=== PATIENT | female | born 2000 | race Caucasian/White ===

== ENCOUNTER 2024-01-23 13:49 | Outpatient (CLI) | payer BC, SELFPAY ==
--- NOTE | ~2024-01-23 | US_ITS ---
EXAMINATION: US OB transvaginal DATE: 01/23/2024 14:14 INDICATION: Uncertain dates. . TECHNIQUE: Real-time transvaginal pelvic ultrasound was performed. COMPARISON: None. FINDINGS: The uterus measures 10.1 x 5.4 x 6.2 cm. There is an intrauterine gestational sac. A yolk sac is iden tified. The crown rump length measures 1.5 cm, which correlates with an estimated gestational age of 7 weeks and 6 day(s) (+/-) 5 day(s). heart motion is identified measuring 155 beats per minute (bpm) by M-mode Doppler. The right ovary measures 5.3 x 3.0 x 3.1 cm. The left ovary is not vi sualized. There is no free fluid in the pelvis. IMPRESSION: 1. Single living intrauterine gestation with estimated date of delivery of 09/04/2024. Reviewed, dictated and finalized at location A. IMPRESSION: 1. Single living intrauterine gestation with estimated date of delivery of 08/12.
== END 2024-01-23 13:50 | disposition home or self-care (01) ==
PROVIDERS: PCP Physician Assistant; Visit Provider Nurse Practitioner Women's Health
DX: Z36.87 Encounter for antenatal screening for uncertain dates (principal); Z3A.00 Weeks of gestation of pregnancy not specified
CPT/HCPCS: 76817

== ENCOUNTER 2024-04-11 08:35 | Outpatient (CLI) | payer BC, SELFPAY ==
--- NOTE | ~2024-04-11 | US_ITS ---
EXAMINATION: US OB /maternal detail DATE: 04/11/2024 10:00 INDICATION: anatomic survey. TECHNIQUE: Real-time ultrasound of the pelvis was performed. COMPARISON: Ultrasound 01/23/2024 FINDINGS: There is a single living fetus in vertex presentation. The placenta is anterior, 6.7 cm from the cer vix. The cervical length is 3.5 cm on transabdominal images, which is normal. heart rate is 158 beats per minute (bpm). The amniotic fluid volume is subjectively normal. The following biometric data were obtained: Biparietal diameter (BPD): 4.3 cm; head circumference (HC): 15.9 cm; abdominal circumference (AC): 13 .7 cm; femur length (FL): 2.8 cm. These measurements are concordant. Estimated weight is 263 g +/- 40 g, which correlates with the 32nd percentile when 09/04/24 is u sed as estimated date of delivery. As single measurements, these parameters are each equal to the following estimated gestational ages: BPD: 19 weeks 1 days. HC: 18 weeks 5 days. AC: 19 weeks 1 days. FL: 18 weeks 4 days. estimated gestational age based solely on measurements from this exam is 18 weeks 6 days +/- 1 weeks 2 days. The cerebral ventricles, cerebellum, cisterna magna, nuchal fold, and spine are normal. The heart is normal. The diaphragm, stomach, kidneys, and bladder are normal. There are two umbilical arteries to yield a 3-vessel cord. The cord insertion is normal. IMPRESSION: 1. Single living fetus in vertex presentation. 2. Estimated weight is 263 g +/- 40 g, which correlates with the 32nd percentile when 09/04/24 is used as estimated date of delivery. This date was set by ultrasound on 01/23/2024. 3. Normal anatomic survey. Reviewed, dictated and finalized at location A. TRICIAN THIRD IMPRESSION: 1. Single living fetus in vertex presentation. 2. Estimated weight is 263 g +/- 40 g, which correlates with the 32nd pe rcentile when 09/04/24 is used as estimated date of delivery. This date was set by ultrasound on 01/23/2024. 3. Normal anatomic survey.
== END 2024-04-11 08:36 | disposition home or self-care (01) ==
PROVIDERS: PCP Physician Assistant; Visit Provider Obstetrics & Gynecology Gynecology
DX: Z36.9 Encounter for antenatal screening, unspecified (principal); Z3A.18 18 weeks gestation of pregnancy
CPT/HCPCS: 76805

== ENCOUNTER 2024-08-26 15:50 | Inpatient (IN) | payer BC, SELFPAY ==
[2024-08-26] VITALS (87 sets, daily range): BP systolic 84–147; BP diastolic 48–116; PULSE 27–171; TEMP 36–36.4; O2SAT 71–100; BMI 45.3
--- NOTE | 2024-08-26 16:42 | P.PNAN_ITS ---
Anes - Eval Pre Procedure Procedure: labor epidural Date/Time: 08/26/24 16:42 Surgeon: aime Preop Diagnosis: pain during labor Pre Op Diagnosis: IOL Patient Data Age: 24 Gender: F Height: Weight: Allergies Allergy/AdvReac Type Severity Reaction Status Date / Time No Known Allergies Allergy Verified 08/05/24 12:47 Home Medications ?Medication ?Instructions ?Recorded ?Confirmed ?Type PNV cmb#[id number]-ferrous fumarate-FA PO 08/05/24 History bupropion HCl 150 mg 24 hr tablet, 150 mg PO DAILY 08/05/24 08/05/24 History extended release (Wellbutrin XL) escitalopram oxalate 20 mg tablet 20 mg PO DAILY 08/05/24 08/05/24 History Patient hx anesthesia problems: none Family hx anesthesia problems: none Results Review: All pre-operative results and documents have been reviewed as part of the pre- operative evaluation. PMFSH Past Medical History Medical History (Updated 08/26/24 @ 16:43 by Jessica Rushing CRNA) Depression Anxiety IUP (intrauterine ), incidental Family History Family History (Updated 08/05/24 @ 12:38 by Susana Desai RN) Mother Cerebrovascular accident Grandparent T-cell lymphoma Grandparent Heart attack Social History Social History Substance use: never Spiritual care concerns: No Exam Day of Procedure 08/26/24 16:42
[2024-08-26 16:45] LABS: Basophils Percent Auto 0.2 % (0.2-1.2); Eosinophils Absolute Auto 0.1 K/mm3 (0-0.3); Hematocrit 33.7 % (37.0-47.0); Hemoglobin 10.6 g/dL (12.0-15.0); Immature Granulocyte Absolute 0.08 K/mm3 (0.00-0.031); Immature Granulocyte Percent A 0.6 % (0-0.5); Lymphocytes Absolute Auto 2.36 K/mm3 (0.9-3.2); Lymphocytes Percent Auto 16.3 % (18.3-44.2); Mean Corpuscular HGB Conc 31.5 g/dl (32-36); Mean Corpuscular Hemoglobin 26.8 pg (26-34); Mean Corpuscular Volume 85.3 fl (80-100); Mean Platelet Volume 10.5 fl (7.4-10.4); Monocytes Absolute Auto 0.8 K/mm3 (0.1-0.6); Monocytes Percent Auto 5.4 % (2.6-8.5); Neutrophils Absolute Auto 11.1 K/mm3 (1.3-6.7); Neutrophils Percent Auto 76.5 % (45.5-73.1); Platelet Count Result 355 k/mm3 (150-375); Red Blood Count 3.95 M/mm3 (4.2-5.4); White Blood Count 14.5 K/mm3 (4.5-10.0)
--- OUTSIDE RECORDS SUMMARY | 2024-08-26 16:48 | XMS_ITS | Clinical Summary ---
Author Organization [facility] Address [address] [place] [id number] Care Team Providers Care Profiling Machine Setup Operator Name Role Phone Farzana Griffin PA-C Primary Care Provider [phone] Allergies No known active allergies Medications vitamin D2, ergocalciferol , (DRISDOL) 1.25 mg capsule TAKE 1 CAPSULE BY MOUTH TWICE WEEKLY WITH A MEAL DIRECTED 5 Active vitamin, low iron, 27-0.8 mg tablet Take 1 tablet by mouth daily. Active methylPREDNISo FARNAZ tapia, (MEDROL DOSEPAK) 4 MG tablet MEDROL dose pack as directed 1 each 5 Active buPROPion XL (WELLBUTRIN XL) 150 MG 24 hr tablet Take 1 tablet (150 mg total) by mouth daily. 025 Discontinued amoxicillin (AMOXIL) 500 MG tablet Take 1 tablet (500 mg total) by mouth 2 (two) times daily for 10 days. 20 tablet 5 025 Encounters Date Type Department Care Team Description 07/30/2024 4:22 PM CDT - 07/30/2024 5:15 PM CDT Hospital Encounter [facility] [address] [place] [id number] Hanna Mccord NP Congestion Discharge Disposition: Home or Self Care (Routine Discharge) 07/30/2024 Travel from Last 3 Months Social History Tobacco Use Types Packs/Day Years Used Date Smoking Tobacco: Never Smokeless Tobacco: Never Tobacco Cessation:Counseling Given: No Alcohol Use Standard Drinks/Week Comments No 0 (1 standard drink = 0.6 oz pur e alcohol) Estimated Date of Delivery Comme nts Yes 09/02/2024 Sex and Gender Information Value Date Recorded Sex Assigned at Female 07/30/2024 4:22 PM CDT Legal Sex Female 7:58 PM CDT Gender Identity Not on file Sexual Orientation Not on file Last Filed Vital Signs Vital Sign Reading Time Taken Comments Blood Pressure 137/85 07/30/2024 4:31 PM CDT Pulse 110 07/30/2024 4:31 PM CDT Temperature 37.1 C (98.8 F) 07/30/2024 4:31 PM CDT Respiratory Rate 22 07/30/2024 4:31 PM CDT Oxygen Saturation 98% 07/30/2024 4:33 PM CDT Inhaled Oxygen Concentration - - Weight 113.4 kg (250 lb) 07/30/2024 4:31 PM CDT Height 162.6 cm (5' 4 ) 07/30/2024 4:31 PM CDT Body Mass Index 42.91 07/30/2024 4:31 PM CDT Plan of Treatment Health Maintenance Due Date Last Done Comments Cervical Cancer Screening Pap Smear (Age 21 to 29) Every 3 Years 1999 Cervical Cancer Screening 1999 Annual Physical 07/20/2002 DTaP, Tdap and Td Vaccines (6 - Tdap) 07/20/2010 09/04/2004, 02/18/2001, 03/01/2000, Additional history exists HPV Vaccines (1 - 3-dose series) 07/20/2014 Hepatitis C 07/20/2017 COVID-19 Vaccine ( season) 2024 12/15/2020, 11/24/2020 Hepatitis B Vaccines Completed 06/25/2000, 1999, 1999 Pneumococcal Vaccine: Pediatrics (0 to 5 Years) and At-Risk Patients (6 to 49 Years) Aged Out 10/24/2000, 06/25/2000 No longer eligibl e based on patient's age to complete this topic Meningococcal Vaccine Completed 01/25/2017 Meningococcal B Vaccine Aged Out No l onger eligible based on patient's age to complete this topic RSV Immunization or 60+ Years (No Doses Required) Completed RSV Immunizations Under 20 Months Aged Out No longer eligible based on patient's age to complete this topic Procedures Procedure Name Priority Date/Time Associated Diagnosis Comments STREP A RAPID STAT 07/30/2024 4:53 PM CDT from Last 3 Months Results * STREP A RAPID (07/30/2024 4:53 PM CDT) SPECIMEN TYPE THROAT 07/30/2024 4:53 PM CDT [facility] RAPID STREP TEST NEGATIVE NEGATIVE 07/30/2024 5:06 PM CDT [facility] STRUCTURE OF ANTERIOR PORTION OF NECK / Unknown 07/30/2024 4:53 PM CDT us Hanna Mccord NP MICROBIOLOGY - GENERAL ORDERA BLES Final Result Performing Organization Address City/State/[facility] Co de Phone Number [facility] [place] [address], from Last 3 Months Insurance [facility] Care Teams Profiling Machine Setup Operator Relationship Specialty Start Date End Date Farzana Griffin PA-C [address] [place] [address] PCP - General PHYSICIAN LIFE INSURANCE SALESPERSON 07/30/24
--- OUTSIDE RECORDS SUMMARY | 2024-08-26 16:48 | XMS_ITS | Clinical Summary ---
Author Organization [address] Address [address] [place] [id number] Care Team Providers Care Horse Race Starter Name Role Phone Farzana Griffin Primary Care Provider [phone] Coni Lopez MD Unavailable [phone] Allergies No known active allergies Medications buPROPion XL (WELLBUTRIN XL) 150 mg 24 hr tabletIndicatio ns:Recurrent mild major depressive disorder with anxiety,General ized anxiety disorder Take 1 tablet (150 mg total) by mouth every morning 90 tablet 3 01/29/2024 Active escitalopram (LEXAPRO) 20 mg tabletIndicatio ns:Recurrent mild major depressive disorder with anxiety,General ized anxiety disorder Take 1 tablet (20 mg total) by mouth daily 90 tablet 3 01/29/2024 5 Active Active Problems Problem Noted Date Diagnosed Date Generalized anxiety disorder 01/29/2024 Assessment & Plan (01/29/2024 7:56 AM CDT): Would have better control if she was taking her medication daily She is trying to do better with this Continue Lexapro and Wellbutrin First trimester 01/29/2024 Assessment & Plan (01/29/2024 7:56 AM CDT): We discussed different obstetricians Okay to continue Wellbutrin and Lexapro when Continue vitamin Annual physical exam 11/29/2022 Assessment & Plan (11/29/2022 8:01 AM CDT): Exercise 5 days a week, 30 mins per day recommended. Eat a heart healthy diet consisting of good, healthy protein (eggs, nuts, peanut butter, chicken, fish, turkey, less pork/beef), lots of vegetables, less carbohydrates and less sugar. Annual physical recommended. 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 Medication changes per orders. Psychological condition will be reassessed in 4 weeks. Continue to see counseling Call with medication intolerance. Assessment & Plan (09/22/2018 4:00 PM CDT): Psychological condition is worsening. Zoloft was increased. F/u in 4 weeks. Discussed actions/SE of anxiety and depression medications. May feel worse before feeling better. The pharmacologic and nonpharmacologic treatment of anxiety/depression were discussed with the patient. Included was a discussion of the current treatment regimens and their proposed mechanism of action concerning brain chemistry. Discussed the role of counseling as an adjunct to medications should we agree to pursue this. The patient denies suicidal or homicidal ideation and should this change, they agreed to inform us immediately or seek medical attention in the emergency room setting. Alcohol abuse 02/04/2018 07/16/2023 Gingivitis 05/16/2017 11/29/2022 Urinary tract infection 10/12/2008/0 10/2021 Immunizations Immunization Administration Dates Next Due DTaP 09/04/2004, 1,03/01/2000,1999, 1999 Hep A, Ped Unspecified 05/02/2002,10/25/2001 Hep B, Adolescent or Pediatric 06/25/2000,1999,1999 HiB 10/24/2000,03/01/2000,1999 ,1999 IPV 09/04/2004,02/18/2001,1999 ,1999 Influenza, Unspecified 01/12/2024(Deferr ed: Patient decision),03/15/2023(Deferred: Patient decision),03/14/2023(Deferred: Patient decision),04/11/2022(Deferred: Patient Refused),03/14/2022,01/16/2022(Deferred: Patient Refused),02/10/2021(Deferred: Patient decision),02/10/2021(Deferred: Patient Refused),02/10/2021(Deferred: Patient Refused),04/14/2003(Deferred: Patient decision) MMR 09/04/2004,10/24/2000 Meningococcal MCV4P (Menactra) 01/25/2017 Pneumococcal Conjugate 7-Valent 10/24/2000,06/25 Varicella 10/24/2000 Medical History Medical History Date Comments Urinary tract infection 10/12/2008 Incomplete emptying of bladder 04/28/2009 Adjustment disorder with anxious mood 02/04/2018 Alcohol abuse 02/04/2018 Gingivitis 05/16/2017 Patellofemoral disorder of left knee 03/25/2018 Patellofemoral disorders, right knee 03/25/2018 Anxiety Family History Medical History Relation Name Comments Clotting disorder Mother April Bryant Stroke Mother April Bryant Relation Name Status Comments Father Alive Mother April Bryant Alive Social History Tobacco Use Types Packs/Day Years Used Date Smoking Tobacco: Never Smokeless Tobacco: Never Tobacco Cessation:Counseling Given: Not Answered Alcohol Use Standard Drinks/Week Comments Never 0 (1 standard drink = 0.6 oz pur e alcohol) AUDIT-C Answer Date Recorded Q1: How often do you have a drink containing alcohol? Never 01/29/2024 Q2: How many drinks containi ng alcohol do you have on a typical day when you are drinking? Patient does not drink Q3: How often do you have si x or more drinks on one occasion? Never 01/29/2024 PHQ-2 Answer Date Recorded PHQ-2 Total Score (If total score is 3 or more points, staff should administer the PHQ-9) 1 01/29/2024 PHQ-9 Answer Date Recorded PHQ-9 Total Score 7 01/29/2024 Personal Safety Answer Date Recorded Getting School Help Needed Not on file 04/27 Comments Yes Sex and Gender Information Value Date Recorded Sex Assigned at Not on file Legal Sex Female 8:10 AM LOCOMOTIVE LUBRICATING SYSTEMS CLERK Gender Identity Female 03/22/2023 9:14 AM LOCOMOTIVE LUBRICATING SYSTEMS CLERK Sexual Orientation Not on file Obstetrics History Para Term AB IAB SAB Ectopic Multiple Livin g Live Births 1 Date Outcome GA Total Labor Labor/2nd/3rd Weight Sex Type Anes PTL Karma A1 A5 Name Clin Current Last Filed Vital Signs Vital Sign Reading Time Taken Comments Blood Pressure 112/70 08/27/2023 7:33 AM CDT Pulse 90 08/27/2023 7:33 AM CDT Temperature 36.7 C (98 F) 08/27/2023 7:33 AM CDT Respiratory Rate 16 08/27/2023 7:33 AM CDT Oxygen Saturation 99% 08/27/2023 7:33 AM CDT Inhaled Oxygen Concentration - - Weight 101.6 kg (224 lb) 01/29/2024 7:23 AM CDT Height 162.6 cm (5' 4 ) 01/29/2024 7:23 AM CDT Body Mass Index 38.45 01/29/2024 7:23 AM CDT Plan of Treatment Health Maintenance Due Date Last Done Comments DTaP/Tdap/Td Vaccine (6 - Tdap) 07/20/2010 09/04/2004, 02/18/2001, 03/01/2000, Additional history exists HPV Vaccines (1 - 3-dose series) 07/20/2014 Regular Well Visit/Exam 18-64 11/30/2023 11/29/2022 Covid-19 Vaccine (3 - season) 2024 12/15/2020, 11/24/2020 Influenza Vaccine (Season Ended) 2025 03/14/2022 Depression Screening 01/28/2025 01/29/2024, 01/29/2024, 08/27/2023, Additional history exists Cervical Cancer Screening 11/29/2025 11/29/2022 Hepatitis B Screening Completed 06/25/2000 , 1999, 1999 Pneumococcal vaccine <65 Aged Out 10/24/2000, 06/13 No longer eligible based on patient's age to complete this topic Varicella Vaccines Discontinued 10/24/2000 Hepatitis C Screening Completed 07/08/2018 Procedures Procedure Name Priority Date/Time Associated Diagnosis Comments PAP SMEAR Routine 11/29/2022 HEPATITIS PANEL, ACUTE Routine 07/08/2018 12:00 PM LOCOMOTIVE LUBRICATING SYSTEMS CLERK from Last 3 Months or Most Recently Relevant to Health Maintenance Results * PAP SMEAR (11/29/2022) SCRIBED Pap test normal Historical Provider HEALTH MAINTENANCE Final Result * Hepatitis panel, acute (07/08/2018 12:00 PM LOCOMOTIVE LUBRICATING SYSTEMS CLERK) HepBsAg NONREACT NONREACTIVE 07/08/2018 6:05 PM LOCOMOTIVE LUBRICATING SYSTEMS CLERK [facility] [employer] HISTORICAL RESULTS Comment: Siemens LifePicsaurXP using RUBA (chemiluminescent immunoassay) technology. NONREACTIVE: IgM antibodies to Hepatitis B Surface antigen not detected. REACTIVE: IgM antibodies to Hepatitis B Surface antigen detected. Reactive results will be confirmed by neutralization testing. HBsAb qn 6.89 mIU/mL 07/08/2018 5:55 PM LOCOMOTIVE LUBRICATING SYSTEMS CLERK [employer] HISTORICAL RESULTS Comment: Siemens LifePicsaurXP using RUBA (chemiluminescent immunoassay) technology. 9.99 IU/L or less.....NONREACTIVE: IgM antibodies to Hepatitis B Surface antibody are not detected. 10.00 IU/L or greater..REACTIVE: IgM antibodies to Hepatitis B Surface antibody are detected. Hep B core IgM NONREACT NONREACTIVE 9 6:33 PM LOCOMOTIVE LUBRICATING SYSTEMS CLERK [facility] HISTORICAL RESULTS Comment: Siemens CentaurXP using RUBA (chemiluminescent immunoassay) technology. NONREACTIVE: IgM antibodies to Hepatitis B Core antigen not detected. EQUIVOCAL: IgM antibodies to Hepatitis B Core antigen may or may not be present. Obtain a new specimen and retest. REACTIVE: IgM antibodies to Hepatitis B Core antigen detected. Hep A IgM NONREACT NONREACTIVE 07/08/2018 6:34 PM LOCOMOTIVE LUBRICATING SYSTEMS CLERK [facility] [employer] [facility] HISTORICAL RESULTS Comment: Siemens CentaurXP using RUBA (chemiluminescent immunoassay) technology. NONREACTIVE: IgM antibodies to Hepatitis A not detected. This does not exclude possibility of exposure to Hepatitis A or early acute infection. EQUIVOCAL:IgM antibodies to Hepatitis A may or may not be present. Suggest recollection and retest. REACTIVE: Antibodies to Hepatitis A detected. Hep C Ab NONREACT NONREACTIVE 07/08/2018 6:32 PM LOCOMOTIVE LUBRICATING SYSTEMS CLERK [facility] HISTORICAL RESULTS Comment: Siemens CentaurXP using RUBA (chemiluminescent immunoassay) technology. NONREACTIVE: Antibodies to Hepatitis C not detected. This does not exclude early acute Hepatitis C infection, possibility of exposure to Hepatitis C, antibodies below detection limit, or to lack of antibody reactivity to the antigen used in this assay. EQUIVOCAL: Antibodies to Hepatitis C may or may not be present. Sample to be confirmed by real-time PCR method. REACTIVE: Antibodies to Hepatitis C detected.Sample to be confirmed by real-time PCR method. 07/08/2018 12:0 0 PM LOCOMOTIVE LUBRICATING SYSTEMS CLERK 07/08/2018 4:22 PM LOCOMOTIVE LUBRICATING SYSTEMS CLERK us Arnie Holley MD LAB MICROBIOLOGY - GENERAL ORDERABLES Final Result [facility] HISTORICAL RESULTS from Last 3 Months or Most Recently Relevant to Health Maintenance Insurance [facility] [place] [address] Care Teams Horse Race Starter Relationship Specialty Start Date End Date Farzana Griffin PA [address] [place] [address] PCP - General Critical Care Med 10/22/18 Coni Lopez MD [address] [place] [address] Consulting Physician Family Medicine 10/22/18
--- OUTSIDE RECORDS SUMMARY | 2024-08-26 16:48 | XMS_ITS | Referral Summary ---
Author Organization [address] Address [address] [place] [id number] Care Team Providers Care Knitting Machine Operator Name Role Phone Farzana Griffin Primary Care Provider [phone] Coni Lopez MD Unavailable [phone] Allergies No known active allergies Medications buPROPion [...] recommended. 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 Class 1 obesity due to exces s [...] 07/16/2023 Gingivitis 05/16/2017 11/29/2022 Urinary tract infection 10/12/200810/2021 Immunizations Immunization Administration Dates Next Due DTaP 09/04/2004, 1,03/01/2000,1999, 1999 Hep A, Ped Unspecified 05/02/2002,10/25/2001 Hep B, Adolescent or Pediatric 06/25/2000,1999,1999 HiB 10/24/2000,03/01/2000,1999 ,1999 IPV 09/04/2004,02/18/2001,1999 ,1999 Influenza, Unspecified 01/12/2024(Deferr ed: Patient decision),03/15/2023(Deferred: Patient decision),03/14/2023(Deferred: Patient decision),04/11/2022(Deferred: Patient Refused),03/14/2022,01/16/2022(Deferred: Patient Refused),02/10/2021(Deferred: Patient decision),02/10/2021(Deferred: Patient Refused),02/10/2021(Deferred: Patient Refused),04/14/2003(Deferred: Patient decision) MMR 09/04/2004,10/24/2000 Meningococcal MCV4P (Menactra) 01/25/2017 Pneumococcal Conjugate 7-Valent 10/24/2000,06/25 Varicella 10/24/2000 Social History Tobacco Use Types Packs/Day Years [...] on file Legal Sex Female 8:10 AM BATH DESIGN SALES CONSULTANT Gender Identity Female 03/22/2023 9:14 AM BATH DESIGN SALES CONSULTANT Sexual Orientation Not on file Last Filed [...] 01/29/2024 7:23 AM CDT Plan of Treatment Not on file Procedures Procedure Name Priority Date/Time Associated Diagnosis Comments PAP SMEAR Routine 11/29/2022 HEPATITIS PANEL, ACUTE Routine 07/08/2018 12:00 PM BATH DESIGN SALES CONSULTANT from Last 3 Months or Most Recently Relevant to Health Maintenance Results * PAP SMEAR (11/29/2022) SCRIBED Pap test normal us Historical Provider HEALTH MAINTENANCE Final Result * Hepatitis panel, acute (07/08/2018 12:00 PM BATH DESIGN SALES CONSULTANT) HepBsAg NONREACT NONREACTIVE 07/08/2018 6:05 PM BATH DESIGN SALES CONSULTANT [facility] HISTORICAL RESULTS Comment: Siemens CentaurXP using RUBA (chemiluminescent immunoassay) technology. NONREACTIVE: IgM antibodies to Hepatitis B Surface antigen not detected. REACTIVE: IgM antibodies to Hepatitis B Surface antigen detected. Reactive results will be confirmed by neutralization testing. HBsAb qn 6.89 mIU/mL 07/08/2018 5:55 PM BATH DESIGN SALES CONSULTANT [facility] [employer] HISTORICAL RESULTS Comment: Siemens CentaurXP using RUBA (chemiluminescent immunoassay) technology. 9.99 IU/L or less.....NONREACTIVE: IgM antibodies to Hepatitis B Surface antibody are not detected. 10.00 IU/L or greater..REACTIVE: IgM antibodies to Hepatitis B Surface antibody are detected. Hep B core IgM NONREACT NONREACTIVE 9 6:33 PM BATH DESIGN SALES CONSULTANT [facility] [employer] HISTORICAL RESULTS Comment: Siemens CentaurXP using RUBA (chemiluminescent immunoassay) technology. NONREACTIVE: IgM antibodies to Hepatitis B Core antigen not detected. EQUIVOCAL: IgM antibodies to Hepatitis B Core antigen may or may not be present. Obtain a new specimen and retest. REACTIVE: IgM antibodies to Hepatitis B Core antigen detected. Hep A IgM NONREACT NONREACTIVE 07/08/2018 6:34 PM [employer] [facility] HISTORICAL RESULTS Comment: Siemens CentaurXP using RUBA (chemiluminescent immunoassay) technology. NONREACTIVE: IgM antibodies to Hepatitis A not detected. This does not exclude possibility of exposure to Hepatitis A or early acute infection. EQUIVOCAL:IgM antibodies to Hepatitis A may or may not be present. Suggest recollection and retest. REACTIVE: Antibodies to Hepatitis A detected. Hep C Ab NONREACT NONREACTIVE 07/08/2018 6:32 PM BATH DESIGN SALES CONSULTANT [facility] [employer] HISTORICAL RESULTS Comment: Siemens CentaurXP using RUBA [...] real-time PCR method. 07/08/2018 12:0 0 PM BATH DESIGN SALES CONSULTANT 07/08/2018 4:22 PM BATH DESIGN SALES CONSULTANT us Arnie Fabio Holley MD LAB MICROBIOLOGY - GENERAL ORDERABLES Final Result [facility] [place] HISTORICAL RESULTS from Last 3 Months or Most Recently Relevant to Health Maintenance Insurance [facility] Care Teams Knitting Machine Operator Relationship Specialty Start Date End Date Farzana Griffin PA [address] [place] [address] PCP - General Critical Care Med 10/22/18 Coni Lopez MD [address] [place], [place] [id number] Consulting Physician Family Medicine 10/22/18
--- NOTE | 2024-08-26 17:03 | OBADM ---
This patient, Abilio Martines, admitted to the OB room Labor/Delivery/Recovery 103 for observation. Patient/family oriented to hospital policies and general routines including ID bracelet, bed and alarms, visiting hours, pain management, procedures, bathroom and other care routines, personal items, smoking policy, room service/diet, and visiting hours. Patient/Family are encouraged to report perceived risks to care and to ask questions if they do not understand what they are told or what they should do.
[2024-08-26] MEDS: OXYTOCIN 30 UNITS/NS 500 ML 30 UNITS/500 ML BAG 6 UNITS IV CONT (17:05)
[2024-08-26] MEDS: LACTATED RINGERS 1,000 ML 125 ML IV CONT ×3 (17:05→23:16)
--- NOTE | 2024-08-26 17:17 | WPDOBADMIT ---
Obstetrics - Admit Note Admission Note: record reviewed. No pertinent additions to the history and/or any subsequent changes in the physical findings that are not consistent with the expected course of the were found. Additions to the history and/or subsequent changes in the physical findings follow. Here for MIL. Cervix 2/50/-1 anterior. AROM with meconium fluid. FHTs reactive.
[2024-08-26 17:33] LABS: Syphilis IgG/IgM Antibody Negative (Negative)
[2024-08-26 17:46] LABS: HIV 1/2 Ab P24 Ag Result Negative (Negative)
[2024-08-26] MEDS: SODIUM CHLORIDE 0.9% IV 300 ML 600 ML I-UTERINE (22:13)
[2024-08-26] MEDS: PHENYLEPHRINE 1,000 MCG/10 ML SYRINGE 100 MCG IV PUSH (22:55)
[2024-08-26] MEDS: SODIUM CHLORIDE 0.9% IV 1,000 ML 150 ML I-UTERINE (23:15)
--- NOTE | 2024-08-26 23:16 | PM.OBPNLAB ---
Pain Control Date/time seen: 08/26/24 23:16 Pain control: epidural (Just placed and caused drop in BP with drop also in FHTs) Pelvic Exam Dilation (cm): 6 (6.5) Effacement (%): 75 Amniotic membrane status: Ruptured Status Comments: I called for report and patient had just received epidural and BP was low with 4 min bradycardia. Pitocin was off and positions being changed. Rec ephedrine and if not resolved quickly to call me back. RN called back and BP came up and slow return to baseline followed by serveral decels with contractions. On my arrival, good variability with some decels appearing late and some variables. Will observe for a short while and see if pattern resolves. Amnioinfusion given for the variable appearing nature. Assessment and Plan Assessment: active labor Plan: continuous present management
[2024-08-26] MEDS: TERBUTALINE SULFATE 1 MG/ML VIAL 0.25 MG SUB-Q (23:39)
[2024-08-27] VITALS (127 sets, daily range): BP systolic 100–147; BP diastolic 39–103; PULSE 50–130; RESP 16–20; TEMP 36.7–37.2; O2SAT 63–100
[2024-08-27] MEDS: buPROPion HCL XL (24 HR) 150 MG TABCR PO ×2 (00:19→20:58)
[2024-08-27] MEDS: LACTATED RINGERS 1,000 ML 125 ML IV CONT ×2 (00:19→03:02)
[2024-08-27] MEDS: ESCITALOPRAM OXALATE 10 MG TABLET 20 MG PO ×2 (00:19→20:58)
--- NOTE | 2024-08-27 03:48 | PM.OBPNLAB ---
Pain Control Date/time seen: 08/27/24 03:48 Pain control: epidural Pelvic Exam Dilation (cm): 7 Effacement (%): 75 station: -2 Amniotic membrane status: Ruptured Status Comments: Since last note, given Terbutaline x 1 due to coupling of contractions and continued variable appearing, late occurring decelerations. These resolved and pitocin restarted around 0015. Called@0307 for concern of strip. Ordered another fluid bolus of amnioinfusion that was almost complete on my arrival. FHT's for last 20 min with good variability with occ brief spikey variables. Prior to my arrival, periods of brief late decels and the variable appearing, late occurring. Also, a long period of normal strip. Throughout, there is moderate variability and some acelerations. Discussed with patient and mother option to proceed with csection due to indeterminate status. Patient wants to observe and continue MIL. Assessment and Plan Assessment: induction ongoing Plan: continuous present management
--- NOTE | 2024-08-27 05:56 | P.PCNOB_ITS ---
OB - Vaginal Delivery Note Procedure Delivery date: 08/27/24 Events: Elective Induction of Labor Intrapartal Events: Decelerations Induction method: AROM and Per Pitocin Protocol Delivery monitor: Internal FHT and Internal Uterine Route of delivery: Episiotomy description: None Laceration Description: Perineal - 2nd Degree Delivery repair: vicryl (3-0) Specimen: Yes (placenta) Quantitative Blood Loss (ml): 150 Anesthesia type: Epidural Disposition: Floor Complications: No immediate complications Narrative: Called at 5:19 a.m. from labor room 11 by RN to evaluate the strip. When she checked the patient baby had a bradycardic episode followed by deep variables with several contractions. The RN cervical exam was 8cm. On my arrival, after looking at the strip was determined the the would probably not tolerate the remainder of labor and pushing. It was recommended to proceed with C- section. The patient stated she felt significant pressure more than when she had just been checked. I checked the patient and she had a very minimal anterior lip. The patient pushed past the anterior lip with 1 contraction. She was set up in [facility] for delivery. At delivery appeared imminent, the decision was made to proceed with vaginal delivery. The patient went on to deliver 5:42 a.m.. Pediatrics was present for delivery. Patient had good tone, color, movement and some minimal crying prior to handing the infant off to Pediatrics. [place] Baby Date of : 08/27/24 Gestational Age by Date: 38 gender: Female presentation: vertex position: Right Occiput Anterior Placenta delivery description: Spontaneous Cord Vessel Description: 3 Vessels and Other (Cord by the 's shoulder but not around) Narrative: scores are not determined at the time of this note. It was discussed with the patient, , and patient's mother that by the time a could bedolla ve been done the patient delivered vaginally due to excellent pushing.
--- NOTE | 2024-08-27 06:04 | PM.OBDSVD ---
DS: Admitting Diagnosis Discharge Date 08/28/24 Admitting Diagnosis MIL at 39 wks DS: Discharge Diagnosis Discharge Diagnosis (1) (normal spontaneous vaginal delivery): Code(s): O80 - Encounter for full-term uncomplicated delivery Status: Acute OB - DS: Summary OB Procedures : Ultrasound OB Procedures Intrapartum: Spontaneous Vag Delivery OB Procedures: : None Peripartum Data Infant Delivery Method: Natural Vaginal Laceration Description: Perineal - 2nd Degree Episiotomy description: None complications: none Status at Discharge Functional status at discharge: independent ambulation Overall status at discharge: patient is progressing back to baseline Time Spent with Patient Time attestation: Total time spent providing and/or coordinating discharge services: DS: Data Data Completed and Pending Labs on day of discharge: Labs from last 24 hours 08/26/24 08/26/24 16:38 16:37 WBC 14.5 H RBC 3.95 L Hgb 10.6 L Hct 33.7 L MCV 85.3 MCH 26.8 MCHC 31.5 L RDW 15.0 H Plt Count 355 MPV 10.5 H Immature Gran % (Auto) 0.6 H Neut % (Auto) 76.5 H Lymph % (Auto) 16.3 L Banner % (Auto) 5.4 Eos % (Auto) 1.0 Baso % (Auto) 0.2 Lymph # (Auto) 2.36 Banner # (Auto) 0.8 H Eos # (Auto) 0.1 Baso # (Auto) 0.0 Abs Immat Gran (auto) 0.08 H Absolute Neuts (auto) 11.1 H Absolute Nucleated RBC 0.000 Nucleated RBC % 0.0 Syphilis IgG/IgM Ab Negative HIV 1&2 Ab/P24 Ag 4thGn Negative Blood Type O Positive Antibody Screen Negative Discharge Plan Discharge Attending physician on discharge: Dia Main Discharging Clinician: Dia Main Anticipated Discharge Date/Time: 08/29/24 06:05 Patient Disposition: Home Activity: may shower and pelvic rest Diet: regular Patient Instructions: Antibiotic Form Patient Language: Greenlandic Stand Alone Forms: General Discharge Information Follow-up/Referrals: Dia Main MD [Physician] - 6 Weeks Discharge Medications: Continued PNV [id number]-ferrous fumarate-FA [ Multivitamins] PO bupropion HCl [Wellbutrin XL] 150 mg tablet extended release 24 hr 150 mg PO DAILY escitalopram oxalate 20 mg tablet 20 mg PO DAILY Date of admission: 08/26/24 15:50 Primary Care Provider: Elias,Farzana Admitting Provider: Dia Main Attending physician on admission: Dia Main Condition: Stable Care Plan Goals: Plans IUD
[2024-08-27] MEDS: LORATADINE 10 MG TABLET PO (06:30)
--- NOTE | 2024-08-27 08:40 | OBPPTRN ---
Patient transferred to post room # 292 via wheelchair. Support person present. Oriented to unit, room, information board, rooming in, admission packet and security measures. Patient verbalizes understanding.
--- NOTE | 2024-08-27 09:23 | PC.NURSE ---
0845: [facility] transport team here. Report given to Phong FOOTE. Team assumed care!
[2024-08-27] MEDS: IBUPROFEN 600 MG TABLET PO ×2 (10:08→19:50)
--- NOTE | 2024-08-27 18:11 | WPDANLDPN2 ---
Anes-Prog Note L&D Date/Time: 08/27/24 18:11 Neuro status: Neuro function grossly intact. Cardiovascular status: normal Respiratory status: normal Airway patency: baseline Mental status: baseline Post-Op hydration status: normal Vital Signs: Last Vital Signs Temp 36.8 C 08/27/24 16:09 Pulse 98 08/27/24 16:09 Resp 20 08/27/24 16:09 BP 126/88 08/27/24 16:09 Pulse Ox 97 08/27/24 13:25 O2 Del Method Room Air 08/26/24 16:47 Pain score (VAS): 0 I/O: Intake & Output 08/27/24 08/27/24 08/27/24 07:59 15:59 23:59 Intake Total 2500 Output Total 150 Balance 2350 Post-procedural complaints: none Patient feedback: Patient satisfied with anesthetic care.
[2024-08-28] MEDS: IBUPROFEN 600 MG TABLET PO (02:18)
[2024-08-28 05:07] LABS: Hematocrit 31.2 % (37.0-47.0); Hemoglobin 9.6 g/dL (12.0-15.0)
[2024-08-28 07:50] VITALS: BP 129/83; PULSE 88; RESP 18; TEMP 36.3; O2SAT 98
[2024-08-28] MEDS: ACETAMINOPHEN 325 MG TABLET 650 MG PO (08:02)
[2024-08-28] MEDS: MULTIVIT/MIN/PREN/FOL AC/IRON TABLET 1 TAB PO (08:03)
[2024-08-28] MEDS: DOCUSATE SODIUM 100 MG CAPSULE PO (08:03)
[2024-08-28] MEDS: POLYSACCHARIDE IRON COMPLEX 150 MG CAPSULE PO (08:03)
--- NOTE | 2024-08-28 10:24 | P.PNOB_ITS ---
OB - PN: Subj Subjective Date/time seen: 08/28/24 10:24 Patient comments: no complaints and pain well controlled baby status: doing well OB - PN: Obj Data Labs 08/28/24 02:09 Labs: Laboratory Results - last 24 hr 08/28/24 02:09 Hgb 9.6 L Hct 31.2 L OB - PN A/P Plan day: 1 Plan: routine care, discharge home and follow up 6 weeks Time Spent With Patient Time: Total time spent is greater than 50% in coordination of care (as documented) at patient's floor/unit and/or counseling patient: Exam 2 : Bimanual exam- vagina & uterus: other (Uterus firm, nt @U)
[2024-08-31 11:19] VITALS: BP 136/82; PULSE 80; RESP 18; TEMP 36.7; O2SAT 99
== END 2024-08-28 11:03 | disposition home or self-care (01) | DRG 807 ==
LOC: ANHLDR 08-27 06:41 → ANHOB2 08-27 08:41
PROVIDERS: Admitting Provider Obstetrics & Gynecology Gynecology; PCP Physician Assistant; Visit Provider Obstetrics & Gynecology Gynecology
DX: O76 Abnormality in fetal heart rate and rhythm complicating labor and delivery (principal); Z37.0 Single live birth; O77.0 Labor and delivery complicated by meconium in amniotic fluid; O70.1 Second degree perineal laceration during delivery; Z3A.39 39 weeks gestation of pregnancy
CPT/HCPCS: 36415; 85014; 85018; 85025; 86593; 86703; 86850; 86900; 86901; 88307; A9270; G0432; J2371; J2590; J2795; J3105; J7030; J7120